=== PATIENT | female | born 1945 | race African-American/Black ===

== ENCOUNTER 2019-05-25 05:51 | Day surgery (SDC) | payer OTHER ==
[2019-05-22 12:23] VITALS: BMI 26.7
[~2019-05-25 05:51] MED LIST: oxyCODONE HCL 10 MG SUSTAINED ACTING TABLET PO ONE
[2019-05-25] MEDS ORDERED: oxyCODONE HCL 10 MG SUSTAINED ACTING TABLET ONE (07:18)
[2019-05-25] MEDS ORDERED: methylPREDNISolone ACET (DEPO) 40 MG/1 ML VIAL ONE (07:19)
[2019-05-25] MEDS ORDERED: LIDOCAINE 1%/EPI 1:100000 (20 ML MULTI DOSE VIAL) ONE (07:19)
[2019-05-25] MEDS ORDERED: ceFAZolin SODIUM 1 GM VIAL ONE (07:27)
[2019-05-25] MEDS ORDERED: SODIUM CHLORIDE 0.9% P/F 10 ML VIAL IJ ONE (07:27)
[2019-05-25] MEDS ORDERED: ONDANSETRON 4 MG/2 ML VIAL ONE (07:27)
[2019-05-25] MEDS ORDERED: BUPIVACAINE HCL/PF 0.5% (5MG/ML) 10 ML VIAL ONE (07:28)
[2019-05-25] MEDS ORDERED: DEXAMETHASONE SOD PHOSPHATE/PF 10 MG/ML SDV ONE (07:34)
[2019-05-25] MEDS ORDERED: BUPIVACAINE HCL/PF 0.5% (5 MG/ML) 30 ML VIAL IJ ONE (07:34)
[2019-05-25] MEDS ORDERED: MIDAZOLAM HCL 2 MG/2 ML SINGLE DOSE VIAL ONE (07:34)
--- NOTE | 2019-05-25 07:47 | HP ---
History & Physical Update - History History: No Change - Physical Physical: No Change - Assessment Assessment: No Change - Plan Plan: No Change
[2019-05-25] MEDS ORDERED: oxyCODONE HCL 5 MG TABLET PO PRN (10:32)
[2019-05-25] MEDS ORDERED: ONDANSETRON 4 MG/2 ML VIAL IVPUSH PRN (10:32)
--- NOTE | 2019-05-25 10:42 | OP ---
Operative Note - Note: Operative Date: 05/25/19 Pre-Operative Diagnosis: lumbar stenosis Operation: laminectomy of lumbar L3-4 with durotomy, repair with duragen and duraseal Surgeon: Alex Matta Entry Engineer: Mercy Leigh Anesthesiologist/SOCK AND STOCKING IRONER: Rustam Shell Anesthesia: Spinal Estimated Blood Loss (mls): 20 Fluid Volume Replaced (mls): 1,000 Operative Report Dictated: Yes
--- NOTE | 2019-05-25 10:44 | SURG ---
Surgery Smudger Note Smudger: Mercy Leigh PA-C Date of Service: 05/25/19 Diagnosis: lumbar stenosis Procedure: laminectomy of lumbar L3-4 with durotomy, repair with duragen and duraseal I was present for the entirety of the operative procedure. For further detail, please refer to operative report. Visit type - Case Type Case Type: Scheduled - New patient This patient is new to me today: Yes Date on this admission: 05/25/19
[2019-05-25] MEDS ORDERED: LACTATED RINGERS SOLUTION 1,000 ML IV SCH (10:45)
--- NOTE | 2019-05-25 11:52 | OP ---
DATE OF OPERATION: 05/25/2019 PREOPERATIVE DIAGNOSIS: Spinal stenosis, L3-4. POSTOPERATIVE DIAGNOSIS: Spinal stenosis, L3-4. PROCEDURE PERFORMED: Laminectomy, L3-4. SURGEON: Alex Matta MD AIRPLANE PATROLLER: LADARIUS Santa ESTIMATED BLOOD LOSS: 50 mL. INTRAVENOUS FLUIDS: Per Anesthesia. ANESTHESIA: Spinal/TLIP block. COMPLICATIONS: None. DISPOSITION: Patient brought to the PACU in stable condition. INDICATION FOR SURGERY: Patient is a 73-year-old female who has been suffering from pain from her back down her legs. X-rays and MRI were completed which noted that she had spinal stenosis from L3 down to L4. She had gone through an exhaustive course of treatment for this, which included medications, physical therapy as well as injections. Unfortunately, her pain continued to persist despite all this. At this point, risks, benefits, and alternatives were discussed, and the patient consented to surgery. DESCRIPTION OF PROCEDURE: Patient was brought to the operating room by the anesthesia staff. After appropriate patient identification was performed, spinal anesthesia was given. A TLIP block was also given. Patient was able to position herself prone onto the OR table with all areas of bony prominences well padded at this time. Two needles were placed into her back to she off the L3 and L4 segments. X-ray was taken to confirm this as correct. [place] were removed, and 10 mL of lidocaine with epinephrine were injected in her back at this time. Her back was prepped and draped in a sterile manner. At this point, timeout was completed. An incision was made from the top of L3 down to the bottom of L4. Dissection was carried down to the fascia. Fascia was split open at this time, and appropriate retractors were then placed in. A spinal needle was placed onto the L3 lamina to she off the level. X-ray was taken to confirm this as correct. The needle was removed, and the interspinous ligament at L2 and L3 was removed. Spinous process of L3 was removed. A complete decompression was performed such that by the end of the procedure the L4 nerve root appeared to be well decompressed. All bleeding was well controlled at this time. Steroid was placed over the nerve root. FloSeal was placed over that. The fascia was closed with a No. 1 Vicryl suture. Subcutaneous tissues were closed with 2-0 Vicryl suture. Skin was closed with 3-0 Monocryl suture. Dermabond was applied. Steri-Strips were applied. A sterile dressing was applied. Patient was placed supine on the OR bed and brought to the PACU in stable condition. ALEX MATTA M.D. TERENCE/[id number]
[2019-05-25 12:42] VITALS: TEMP 97.4
[2019-05-25 14:09] VITALS: BP 133/74; PULSE 76
== END 2019-05-25 13:50 | disposition home or self-care (01) ==
LOC: FASU 05:51
PROVIDERS: ATTEND Orthopaedic Surgery Orthopaedic Surgery of the Spine
PROC: 01NB0ZZ Release Lumbar Nerve, Open Approach (ICD-10-PCS; principal; 2019-05-25 09:11)
DX: M48.061 Spinal stenosis, lumbar region without neurogenic claudication (principal)
CPT/HCPCS: 72100-TC-FY; 82962; 94760